=== PATIENT | male | born 1950 | race Two or more races ===

== ENCOUNTER 2023-06-02 10:15 | Emergency (ER) | payer OTHER ==
[~2023-06-02] VITALS: Ht 180.3 cm; Wt 86.3 kg
[2023-06-02] MEDS ORDERED: MECL1TAB31 PO (11:19)
[2023-06-02] MEDS: MECLIZINE HCL 25 MG TAB PO ONE (11:20)
[2023-06-02] MEDS: cloNIDine HCL 0.1 MG TAB PO ONE (11:46)
[2023-06-02 12:25] VITALS: BP 148/96; PULSE 72; RESP 18; TEMP 97.9; O2SAT 95
== END 2023-06-02 12:24 | disposition home or self-care (01) ==
LOC: ER 10:15
DX: R42 Dizziness and giddiness (principal); I10 Essential (primary) hypertension; E11.9 Type 2 diabetes mellitus without complications; E78.5 Hyperlipidemia, unspecified; Z86.73 Personal history of transient ischemic attack (TIA), and cerebral infarction without residual deficits
CPT/HCPCS: 70450; 82962; 93005; 99284; J8597